=== PATIENT | female | born 1955 | race Caucasian/White ===

== ENCOUNTER 2016-07-12 07:41 | Day surgery (SDC) | payer MEDICAID, OTHER ==
[2016-07-12] MEDS ORDERED: SIMETHICONE DROPS 30 ML BOTTLE ONE (08:50)
[2016-07-12] MEDS ORDERED: PROPOFOL/EMULSION 500 MG/50 ML BOTTLE IV ONE (08:53)
[2016-07-12] MEDS ORDERED: MIDAZOLAM 2 MG/2 ML VIAL ONE (08:53)
[2016-07-12] MEDS ORDERED: LIDOCAINE 2% 5 ML SDV ONE (08:53)
[2016-07-12] MEDS ORDERED: LIDOCAINE 1% 2 ML INJ ONE (08:55)
--- NOTE | 2016-07-12 09:49 | GPN ---
[f rep st] PROCEDURE NOTE PREPROCEDURE DIAGNOSIS: History of colon polyps. POSTPROCEDURE DIAGNOSIS: Diverticulosis. No polyps found. PROCEDURE: Colonoscopy. MEDICATIONS: Monitored anesthesia care. INDICATIONS: The patient is a 61-year-old female with a history of colon polyps. She is here for s urveillance colonoscopy. The risks and the benefits of the procedure were discussed with the patien t and consent obtained. The risks include, but not limited to, bleeding, perforation, and risks ass ociated with sedation. The patient is ASA class 2. DESCRIPTION OF PROCEDURE: The adult colonoscope was advanced into the terminal ileum, which appears normal. The appendiceal orifice, ileocecal valve, cecum, ascending colon, hepatic flexure, transve rse colon, and splenic flexure appear normal. She has scattered moderate diverticulosis in the desc ending colon and sigmoid colon. Retroflexed views in the rectum are normal. IMPRESSION: Moderate left-sided diverticulosis. RECOMMENDATIONS: 1. Advance diet as tolerated. I recommend a high-fiber diet. 2. Discharge to home with escort. 3. Repeat colonoscopy in 5 years given history of polyps. Thank you for allowing me to participate in the care of your patient. Please do not hesitate to tova delgado with questions. /[id number]/MODL
== END 2016-07-12 10:25 | disposition home or self-care (01) ==
LOC: FSGY 07:41
PROVIDERS: ATTEND Internal Medicine Gastroenterology
PROC: 0WJP8ZZ Inspection of Gastrointestinal Tract, Via Natural or Artificial Opening Endoscopic Approach (ICD-10-PCS; principal; 2016-07-12 08:45)
DX: Z12.11 Encounter for screening for malignant neoplasm of colon (principal); K57.30 Diverticulosis of large intestine without perforation or abscess without bleeding; Z86.010 Personal history of colon polyps; Z83.71 Family history of colonic polyps
CPT/HCPCS: J2250; J2704